=== PATIENT | male | born 1990 | race Caucasian/White ===

== ENCOUNTER 2021-01-15 22:47 | Emergency (ER) | payer MEDICARE, MEDICAID, SELFPAY ==
[2021-01-15 22:55] VITALS: BP 107/59; PULSE 55; RESP 16; TEMP 36.6; O2SAT 97; BMI 20.9
--- NOTE | 2021-01-16 00:33 | PC.NURSE ---
at bedside for primary eval.
--- NOTE | 2021-01-16 00:44 | ED_ITS ---
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 Patient regularly snorts heroin and states that the last use was today. Otherwise, he denies any sore throat, cough, shortness of breath, chest pain/palpitations, GI or symptoms. Related Data Allergies Allergy/AdvReac Type Severity Reaction Status Date / Time No Known Allergies Allergy Verified 01/15/21 23:00 Review of Systems Review of Systems: Pertinent positives and negatives as stated in HPI 10 point review of systems is otherwise negative. [facility] Past Medical History Source: nursing notes reviewed Medical History Asthma Epilepsy Opiate abuse, continuous Thyroid disease Social History Social History Advance Directives: No Advance Directives Information Provided: No Physical Exam Vital Signs: Vital Signs: Last Vital Signs Temp 97.8 F 01/15/21 22:55 Pulse 55 01/15/21 22:55 Resp 16 01/15/21 22:55 BP 107/59 L 01/15/21 22:55 Pulse Ox 97 01/15/21 22:55 Body Mass Index 20.9 VITAL SIGNS: Reviewed. GENERAL: Cachectic appearing, in no acute distress. HEAD: Normocephalic/atraumatic EYES: PERRLA, EOMI NOSE: Nares patent bilateral OROPHARYNX: no oral lesions noted, posterior pharynx clear LUNGS: Normal breath sounds. No adventitious sounds or accessory muscle use. SpO2<97> CARDIOVASCULAR: Regular rate and rhythm without noted murmurs ABDOMEN: Soft, non-tender, non-distended with bowel sounds. BILATERAL FEET: Nonpitting swelling noted to bilateral feet with proximal extension to the ankle without warmth but erythema is noted. SKIN: Inspection of the skin reveals no rashes NEUROLOGIC: Alert and oriented x 4. Strength and sensation to light touch were grossly intact x 4. Course Course Course Narrative: 30-year-old male with history and clinical presentation consistent with bilateral foot swelling and no evidence to suggest infection will evaluate for renal involvement, doubt DVT, possible venous insufficiency. Review of all investigations without acute findings from baseline. All results were discussed via the hydraulic riveter with the mother and patient at bedside. They were encouraged to follow up with the primary care provider for further outpatient management and provided information regarding the clinic here at [facility] for the Suboxone program. MDM - Extremity (Nontraumatic) Lab Data Result diagrams: 01/16/21 01:07 01/16/21 01:08 Labs: Lab Results 01/16/21 01/16/21 01/16/21 Range/Units 01:07 01:07 01:07 WBC 7.3 (4.8-10.8) X10*3/uL RBC 4.12 L (4.60-5.80) X10*6/uL Hgb 12.1 L (14.0-18.0) g/dl Hct 38.4 L (42-52) % MCV 93.2 (80-98) fL MCH 29.4 (27.0-33.0) pg MCHC 31.5 (31.0-36.0) g/dl RDW 12.6 (11.0-16.0) % Plt Count 200 (160-400) X10*3/uL MPV 11.8 (9.4-12.4) fL Immature Gran % (Auto) 0.3 (0.0-0.4) % Neut % (Auto) 48.4 (45-73) % Lymph % (Auto) 34.6 (20-40) % [place] % (Auto) 10.8 (2-11) % Eos % (Auto) 4.8 H (0-4) % Baso % (Auto) 1.1 (0-2) % Lymph # (Auto) 2.5 (1.2-4.9) X10*3/uL [place] # (Auto) 0.8 (0.1-1.2) X10*3/uL Eos # (Auto) 0.4 (0.0-0.4) X10*3/uL Baso # (Auto) 0.1 (0.0-0.2) X10*3/uL Abs Immat Gran (auto) 0.02 (0.00-0.03) X10*3/uL Absolute Neuts (auto) 3.6 (2.0-8.3) X10*3/uL Absolute Nucleated RBC 0.000 (0.0-0.012) X10*3/uL Nucleated RBC % (auto) 0.0 (0.0-0.2) /100WBC Sodium (135-145) mmol/L Potassium (3.3-5.1) mmol/L Chloride (96-108) mmol/L Carbon Dioxide (22-29) mmol/L Anion Gap (12-20) BUN (9-16) mg/dL Creatinine (0.5-1.4) mg/dL Estim Creat Clear Calc Estimated GFR Random Glucose (60-115) mg/dL Lactic Acid 0.9 (0.5-2.0) mmol/L Calcium (8.4-10.2) mg/dL Total Bilirubin (0.0-1.0) mg/dL AST (5-37) U/L ALT (0-40) U/L Alkaline Phosphatase (39-117) U/L Total Protein (6.5-8.0) g/dL Albumin (3.5-5.0) g/dL TSH (0.32-4.0) uIU/mL Free T4 (0.71-1.85) ng/dL COVID-19 (ABRAN) Negative (Negative) COVID-19 Clin Com See Note 01/16/21 Range/Units 01:08 WBC (4.8-10.8) X10*3/uL RBC (4.60-5.80) X10*6/uL Hgb (14.0-18.0) g/dl Hct (42-52) % MCV (80-98) fL MCH (27.0-33.0) pg MCHC (31.0-36.0) g/dl RDW (11.0-16.0) % Plt Count (160-400) X10*3/uL MPV (9.4-12.4) fL Immature Gran % (Auto) (0.0-0.4) % Neut % (Auto) (45-73) % Lymph % (Auto) (20-40) % [place] % (Auto) (2-11) % Eos % (Auto) (0-4) % Baso % (Auto) (0-2) % Lymph # (Auto) (1.2-4.9) X10*3/uL [place] # (Auto) (0.1-1.2) X10*3/uL Eos # (Auto) (0.0-0.4) X10*3/uL Baso # (Auto) (0.0-0.2) X10*3/uL Abs Immat Gran (auto) (0.00-0.03) X10*3/uL Absolute Neuts (auto) (2.0-8.3) X10*3/uL Absolute Nucleated RBC (0.0-0.012) X10*3/uL Nucleated RBC % (auto) (0.0-0.2) /100WBC Sodium 139 (135-145) mmol/L Potassium 4.6 (3.3-5.1) mmol/L Chloride 107 (96-108) mmol/L Carbon Dioxide 18 L (22-29) mmol/L Anion Gap 19 (12-20) BUN 16 (9-16) mg/dL Creatinine 1.09 (0.5-1.4) mg/dL Estim Creat Clear Calc 83.4 Estimated GFR > 60 Random Glucose 92 (60-115) mg/dL Lactic Acid (0.5-2.0) mmol/L Calcium 10.0 (8.4-10.2) mg/dL Total Bilirubin 0.2 (0.0-1.0) mg/dL AST 19 (5-37) U/L ALT 10 (0-40) U/L Alkaline Phosphatase 63 (39-117) U/L Total Protein 8.5 H (6.5-8.0) g/dL Albumin 4.6 (3.5-5.0) g/dL TSH 4.14 H (0.32-4.0) uIU/mL Free T4 0.87 (0.71-1.85) ng/dL COVID-19 (ABRAN) (Negative) COVID-19 Clin Com Discharge Plan Discharge Clinical Impression: Heroin abuse, Bilateral swelling of feet Patient Disposition: Home, Self-Care Instructions: Polysubstance Abuse (ED), Swollen Ankle Joint (ED) Additional Instructions: 1. Greta un seguimiento con quintanilla proveedor de atenci?n primaria el lunes por la ma?almas para pretty reevaluaci?n y un tratamiento ambulatorio adicional. 2. Se le luther proporcionado informaci?n sobre nuestro programa Suboxone aqu? en el hospital para la adicci?n a la hero?na. Regrese a la fam de emergencias por un empeoramiento kole de los s?ntomas. Referrals: Keren Randle MD [Primary Care Provider] - 2 days Print Language: [place] Islander
--- NOTE | 2021-01-16 01:12 | PC.NURSE ---
IV established, BCX x 1 and labs obtained. research technician at bedside for second set of BCX. Pt crying and swearing after labs and Covid. Mom at bedside calming pt down.
[2021-01-16 01:17] LABS: MANUAL DIFF FLAG NO
[2021-01-16 01:18] LABS: Basophils Absolute Auto 0.1 X10*3/uL (0.0-0.2); Basophils Percent Auto 1.1 % (0-2); Eosinophils Absolute Auto 0.4 X10*3/uL (0.0-0.4); Eosinophils Percent Auto 4.8 % (0-4); Hematocrit 38.4 % (42-52); Hemoglobin 12.1 g/dl (14.0-18.0); Imm Gran Abs Auto 0.02 X10*3/uL (0.00-0.03); Imm Gran Pct Auto 0.3 % (0.0-0.4); Lymphocytes Absolute Auto 2.5 X10*3/uL (1.2-4.9); Lymphocytes Percent Auto 34.6 % (20-40); Mean Corpuscular HGB Conc 31.5 g/dl (31.0-36.0); Mean Corpuscular Hemoglobin 29.4 pg (27.0-33.0); Mean Corpuscular Volume 93.2 fL (80-98); Mean Platelet Volume 11.8 fL (9.4-12.4); Monocytes Absolute Auto 0.8 X10*3/uL (0.1-1.2); Monocytes Percent Auto 10.8 % (2-11); Neutrophils Absolute Auto 3.6 X10*3/uL (2.0-8.3); Neutrophils Percent Auto 48.4 % (45-73); Platelet Count 200 X10*3/uL (160-400); Red Blood Count 4.12 X10*6/uL (4.60-5.80); Red Cell Distribution Width 12.6 % (11.0-16.0); White Blood Count 7.3 X10*3/uL (4.8-10.8)
[2021-01-16 01:32] LABS: COVID-19 Test Negative (Negative)
[2021-01-16 01:36] LABS: Lactic Acid 0.9 mmol/L (0.5-2.0)
[2021-01-16 01:56] LABS: Alanine Aminotransferase 10 U/L (0-40); Albumin Level 4.6 g/dL (3.5-5.0); Alkaline Phosphatase 63 U/L (39-117); Anion Gap 19 (12-20); Aspartate Amino Transferase 19 U/L (5-37); Bilirubin Total 0.2 mg/dL (0.0-1.0); Blood Urea Nitrogen 16 mg/dL (9-16); Carbon Dioxide 18 mmol/L (22-29); Chloride 107 mmol/L (96-108); Creatinine Clr Calc Pharmacy 83.4; Estimated Glomerular Filt Rate > 60; Glucose Random 92 mg/dL (60-115); Potassium 4.6 mmol/L (3.3-5.1); Sodium 139 mmol/L (135-145); Total Protein 8.5 g/dL (6.5-8.0)
[2021-01-16 02:04] LABS: TSH reflex Free T4 4.14 uIU/mL (0.32-4.0)
[2021-01-16 02:44] LABS: Free T4 (Free Thyroxine) 0.87 ng/dL (0.71-1.85)
[2021-01-16 03:55] VITALS: BP 132/68; PULSE 48; RESP 20; O2SAT 98
[2021-01-20 05:30] LABS: Levetiracetam Keppra 20.3 mcg/mL (12.0-46.0)
== END 2021-01-16 04:00 | disposition home or self-care (01) ==
PROVIDERS: Emergency Provider Student in an Organized Health Care Education/Training Program; PCP Family Medicine
DX: R22.43 Localized swelling, mass and lump, lower limb, bilateral (principal); M79.672 Pain in left foot; M79.671 Pain in right foot; F11.20 Opioid dependence, uncomplicated; Z20.822 Contact with and (suspected) exposure to COVID-19
CPT/HCPCS: 36415; 80053; 80177; 83605; 84439; 84443; 85025; 87040; 87635; 99283; 99284

== ENCOUNTER 2021-01-19 12:17 | Outpatient (REF) | payer MEDICARE, MEDICAID, SELFPAY ==
--- NOTE | ~2021-01-19 | XR_ITS ---
EXAMINATION: XR FOOT, BILATERAL CLINICAL INDICATION: Hallux valgus. COMPARISON: There are no films to compare. TECHNIQUE: 3 views left foot. 3 views right foot. FINDINGS: LEFT FOOT: 3 views left foot show moderate to marked hallux valgus. There is likely bunion formation associated. There is no bony erosion or osteopenia. The alignment is otherwise felt to be within normal limits in the foot. RIGHT FOOT: 3 views of the right foot show [id number] hallux valgus. Again likely bunion formation. Otherwise alignment is within normal limits. No bony erosion or osteopenia is seen. XR/XR foot LT min 3V IMPRESSION: Hallux valgus left greater than right foot.
--- NOTE | ~2021-01-19 | XR_ITS ---
EXAMINATION: XR FOOT, BILATERAL CLINICAL INDICATION: Hallux valgus. COMPARISON: There are no films to compare. TECHNIQUE: 3 views left foot. 3 views right foot. FINDINGS: LEFT FOOT: 3 views left foot show moderate to marked hallux valgus. There is likely bunion formation associated. There is no bony erosion or osteopenia. The alignment is otherwise felt to be within normal limits in the foot. RIGHT FOOT: 3 views of the right foot show [id number] hallux valgus. Again likely bunion formation. Otherwise alignment is within normal limits. No bony erosion or osteopenia is seen. XR/XR foot RT min 3V IMPRESSION: Hallux valgus left greater than right foot.
== END 2021-01-19 12:18 | disposition home or self-care (01) ==
LOC: HO.XRAY 12:17
PROVIDERS: PCP Family Medicine; Visit Provider Family Medicine
DX: M20.11 Hallux valgus (acquired), right foot (principal); M20.12 Hallux valgus (acquired), left foot; M79.89 Other specified soft tissue disorders
CPT/HCPCS: 73630

== ENCOUNTER 2021-04-29 12:41 | Emergency (ER) | payer MEDICARE, MEDICAID, SELFPAY ==
--- NOTE | 2021-04-29 12:52 | ED_ITS ---
HPI - Seizure General Chief Complaint: Seizure Stated Complaint: SEIZURE Time Seen by Provider: 04/29/21 12:52 Source: patient and EMS Mode of arrival: EMS Limitations: altered mental status (postictal) History of Present Illness MD complaint: seizure Onset (ago): minute(s) Description of Episode: loss of consciousness and tonic-clonic movement Witnessed: Yes - by Bystander Trauma: No Seizure History: Yes Place: Outdoors Possible Precipitating Event: medication Associated symptoms: other (very aggressive afterwards) Treatments prior to arrival: none Related Data Previous Rx's Medication Instructions Recorded divalproex 500 mg tablet,extended 500 mg PO BID #60 tab 04/29/21 release 24 hr (Depakote ER) levetiracetam 1,000 mg tablet 1,000 mg PO BID #60 tab 04/29/21 Allergies Allergy/AdvReac Type Severity Reaction Status Date / Time No Known Allergies Allergy Verified 01/15/21 23:00 Review of Systems Review of Systems: ROS unable to be obtained due to patient being postictal [facility] Past Medical History Attestation statement: The following information was validated with the patient. Medical History Asthma Epilepsy Opiate abuse, continuous Thyroid disease Social History Social History (Updated 04/29/21 @ 13:00 by Vaishnavi Roman DO) Patient Tobacco Use Status: Current everyday Tobacco user Use of substances other than those prescribed or required for medical reasons: No Advance Directives: No Advance Directives Information Provided: No Physical Exam Vital Signs: Vital Signs: Last Vital Signs Temp 98.5 F 04/29/21 13:02 Pulse 67 04/29/21 14:23 Resp 14 04/29/21 14:23 BP 123/62 04/29/21 14:23 Pulse Ox 95 04/29/21 14:23 Body Mass Index 21.6 Appearance: Alert. Oriented X2. No acute distress. Agitated Eyes: Pupils equal, round and reactive to light. ENT: Pharynx normal. no tongue biting Neck: Normal inspection. Neck supple. CVS: Normal heart rate and rhythm. Pulses normal. Respiratory: No respiratory distress. Breath sounds normal. Abdomen: Soft and nontender. Skin: Skin warm and dry. Normal skin color. Normal skin turgor. Extremities: No lower extremity edema. No calf ttp Neuro: Oriented X 2. No motor deficit. No sensory deficit. agitated Course Course Course Narrative: easily woken at baseline GCS 15 unsure if he is compliant with start on keppra 1000mg BID and keppra 500mg BID until he can see his neurologist I spoke to mom and his girlfriend they note the detox program changed his AEDs they are not sure why I told them this was not appropriate without consulting his neurologist - he is to take the medications now that we prescribe they are aware MDM - Seizure MDM Narrative Medical decision making narrative: patient with epilepsy as of january was on depakote 500mg ER in AM and 1,00mg PM as well as keppra 1,000mg AM and 1500mg PM - he states no medications today he is postictal and agitated, labs and IV ativan ordered Lab Data Result diagrams: 04/29/21 13:14 04/29/21 13:14 Labs: Lab Results 04/29/21 04/29/21 04/29/21 Range/Units 13:14 13:14 13:15 WBC 8.1 (4.8-10.8) X10*3/uL RBC 3.94 L (4.60-5.80) X10*6/uL Hgb 11.6 L (14.0-18.0) g/dl Hct 36.3 L (42.0-52.0) % MCV 92.1 (80.0-98.0) fL MCH 29.4 (27.0-33.0) pg MCHC 32.0 (31.0-36.0) g/dl RDW 12.6 (11.0-16.0) % Plt Count 296 (160-400) X10*3/uL MPV 10.7 (9.4-12.4) fL Immature Gran % (Auto) 0.4 (0.0-0.4) % Neut % (Auto) 77.0 H (45-73) % Lymph % (Auto) 13.7 L (20-40) % [place] % (Auto) 6.1 (2-11) % Eos % (Auto) 2.2 (0-4) % Baso % (Auto) 0.6 (0-2) % Lymph # (Auto) 1.1 L (1.2-4.9) X10*3/uL [place] # (Auto) 0.5 (0.1-1.2) X10*3/uL Eos # (Auto) 0.2 (0.0-0.4) X10*3/uL Baso # (Auto) 0.1 (0.0-0.2) X10*3/uL Abs Immat Gran (auto) 0.03 (0.00-0.03) X10*3/uL Absolute Neuts (auto) 6.2 (2.0-8.3) x10*3/uL Absolute Nucleated RBC 0.000 (0.0-0.012) X10*3/uL Nucleated RBC % (auto) 0.0 (0.0-0.2) /100WBC Sodium 138 (135-145) mmol/L Potassium 4.1 (3.3-5.1) mmol/L Chloride 107 (96-108) mmol/L Carbon Dioxide 18 L (22-29) mmol/L Anion Gap 17 (12-20) BUN 17 H (9-16) mg/dL Creatinine 1.13 (0.5-1.4) mg/dL Estim Creat Clear Calc 79.7 Estimated GFR > 60 Random Glucose 134 H D (60-115) mg/dL Calcium 9.4 (8.4-10.2) mg/dL Valproic Acid 6.0 L (50.0-100.0) mcg/mL Discharge Plan Discharge Clinical Impression: Generalized convulsive seizure Patient Disposition: Home, Self-Care Instructions: Epilepsy (ED) Additional Instructions: return to ED for any worsening symptoms or concerns ONLY TAKE THE SEIZURE MEDICATIONS WE PRESCRIBED DO NOT TAKE ANY OTHERS FROM THE DETOX FACILITY RADAMES ?NICAMENTE LOS MEDICAMENTOS ANVERSALES QUE LE PRESCRITAMOS NO RADAMES SHAHZAD?N OTRO DEL CENTRO DE DETOX Prescriptions: New levetiracetam 1,000 mg tablet 1,000 mg PO BID Qty: 60 RF: 2 divalproex [Depakote ER] 500 mg tablet extended release 24 hr 500 mg PO BID Qty: 60 RF: 2 Referrals: Hector Villasenor MD [Physician] - 1 week Stand Alone Forms: Work/School Release Print Language: [place] Verdean
[2021-04-29 13:02] VITALS: BP 136/43; PULSE 85; RESP 18; TEMP 36.9; O2SAT 95; BMI 21.6
[2021-04-29 13:17] VITALS: BP 106/59; PULSE 71; RESP 16; O2SAT 94
[2021-04-29 13:19] LABS: MANUAL DIFF FLAG NO
--- NOTE | 2021-04-29 13:19 | PC.NURSE ---
pt is currently drowsy but arrousable to voice command, no visible incontinence noticed, ns on the monitor, vs stable
[2021-04-29 13:21] LABS: Basophils Absolute Auto 0.1 X10*3/uL (0.0-0.2); Basophils Percent Auto 0.6 % (0-2); Eosinophils Absolute Auto 0.2 X10*3/uL (0.0-0.4); Eosinophils Percent Auto 2.2 % (0-4); Hematocrit 36.3 % (42.0-52.0); Hemoglobin 11.6 g/dl (14.0-18.0); Imm Gran Abs Auto 0.03 X10*3/uL (0.00-0.03); Imm Gran Pct Auto 0.4 % (0.0-0.4); Lymphocytes Absolute Auto 1.1 X10*3/uL (1.2-4.9); Lymphocytes Percent Auto 13.7 % (20-40); Mean Corpuscular Hemoglobin 29.4 pg (27.0-33.0); Mean Corpuscular Volume 92.1 fL (80.0-98.0); Mean Platelet Volume 10.7 fL (9.4-12.4); Monocytes Absolute Auto 0.5 X10*3/uL (0.1-1.2); Monocytes Percent Auto 6.1 % (2-11); Neutrophils Absolute Auto 6.2 x10*3/uL (2.0-8.3); Platelet Count 296 X10*3/uL (160-400); Red Blood Count 3.94 X10*6/uL (4.60-5.80); Red Cell Distribution Width 12.6 % (11.0-16.0); White Blood Count 8.1 X10*3/uL (4.8-10.8)
[2021-04-29] MEDS: LORazepam 2 MG/ML VIAL 1 MG IVPUSH (13:26)
[2021-04-29] MEDS: 0.9 % Sodium Chloride 1,000 ML 999 ML IV (13:26)
[2021-04-29] MEDS: levETIRAcetam in NaCl (iso-os) 1,000 MG/100 ML PIGGYBACK 400 MG IV (13:27)
[2021-04-29 13:34] LABS: Anion Gap 17 (12-20); Blood Urea Nitrogen 17 mg/dL (9-16); Calcium 9.4 mg/dL (8.4-10.2); Carbon Dioxide 18 mmol/L (22-29); Chloride 107 mmol/L (96-108); Creatinine Clr Calc Pharmacy 79.7; Estimated Glomerular Filt Rate > 60; Glucose Random 134 mg/dL (60-115); Potassium 4.1 mmol/L (3.3-5.1); Sodium 138 mmol/L (135-145)
[2021-04-29 14:23] VITALS: BP 123/62; PULSE 67; RESP 14; O2SAT 95
--- NOTE | 2021-04-29 16:02 | PC.NURSE ---
no seizure activity noticed while in the ed
[2021-04-29] MEDS: Divalproex Sodium ER 500 MG TAB.ER.24H PO (16:07)
[2021-04-29 16:12] VITALS: BP 117/62; PULSE 61; RESP 8; TEMP 36.9; O2SAT 97
== END 2021-04-29 17:13 | disposition home or self-care (01) ==
PROVIDERS: Emergency Provider Emergency Medicine; PCP Family Medicine
DX: G40.409 Other generalized epilepsy and epileptic syndromes, not intractable, without status epilepticus (principal); F11.20 Opioid dependence, uncomplicated; F17.200 Nicotine dependence, unspecified, uncomplicated
CPT/HCPCS: 36415; 80048; 80164; 85025; 96361; 96374; 96375; 99284; J1953; J2060

== ENCOUNTER 2022-09-29 17:02 | Emergency (ER) | payer MEDICARE, MEDICAID, SELFPAY ==
[2022-09-29] MEDS: LORazepam 2 MG/ML VIAL IM (17:10)
[2022-09-29] MEDS: diphenhydrAMINE HCL 50 MG/ML VIAL IM (17:10)
--- NOTE | 2022-09-29 17:13 | ED_ITS ---
HPI - General Adult General Chief complaint: Overdose Stated complaint: ?OD Time Seen by Provider: 09/29/22 17:07 Source: EMS Mode of arrival: EMS Limitations: altered mental status History of Present Illness HPI narrative: 32-year-old male with reported history of drug abuse presents with erratic behavior. Symptoms started prior to arrival. He is coming from home. Father apparently tried to give Narcan with no improvement in symptoms. He was alert and very active. He was noted to be quite agitated. He was talking in Nepalese unclear what he was saying. Patient is unable to provide history. Patient's b ehavior became so retic, he was referred as per, receive Haldol 5 mg IM. Reportedly he is moving all extremities, there is no evidence of trauma. Review of the record, patient apparently has a history of seizure disorder. Related Data Previous Rx's Medication Instructions Recorded divalproex 500 mg tablet,extended 500 mg PO BID #60 tabs 04/29/21 release 24 hr (Depakote ER) levetiracetam 1,000 mg tablet 1,000 mg PO BID #60 tabs 04/29/21 Allergies Allergy/AdvReac Type Severity Reaction Status Date / Time No Known Allergies Allergy Verified 09/29/22 17:18 [facility] Past Medical History Medical History Asthma Epilepsy Opiate abuse, continuous Thyroid disease Social History Social History Patient Tobacco Use Status: Current everyday Tobacco user Advance Directives: No Physical Exam ED Vital Signs: Vital Signs - 24 hr 09/29/22 17:14 09/29/22 17:21 09/29/22 19:23 Temperature Pulse Rate 104 H 104 H 67 Respiratory Rate 18 26 H 16 Blood Pressure 110/56 L 133/56 L 101/60 Pulse Oximetry 100 98 94 Oxygen Delivery Method Room Air Room Air Room Air 09/29/22 22:12 09/30/22 00:00 Temperature 97.1 F Pulse Rate 56 Respiratory Rate 13 18 Blood Pressure 148/79 H Pulse Oximetry 96 Oxygen Delivery Method Room Air BMI result Body Mass Index 19.9 GEN: Well developed, AMS, erratic behavior, not redirectable, diaphoretic HEENT: Normocephalic, atraumatic, normal external ears, nose appears normal, Eyes: Normal to appearance Neck: Supple, no lymphadenopathy Respiratory: no respiratory distress, clear to auscultation bilaterally Cardiovascular: Regular rate and rhythm Abdomen: Soft, nontender, nondistended, no guarding, no rebound Extremities: No clubbing cyanosis or edema Neurologic: No focal neurologic deficits, cranial nerves 2-12 intact, strength is 5/5 bilaterally Course Course Course Narrative: 32-year-old male presents with altered mental status, agitation, aggressive behavior, not redirectable. Patient received Haldol prior to arrival, brought in on 4 point restraints. Patient continues to be not redirectable at this time. I have given an additional dose of medications Ativan 2 mg IM and Benadryl 50 mg IM. Will need to reassess patient. I suspect his polysubstance abuse. Reevaluation(s) Reevaluation #1: patient with elevated depakote level, doubt cause of symptoms. Continue to support clinically Time: 19:11 Reevaluation #2: Mother is bedside Time: 21:14 Reevaluation #3: patient out of restraints, arousable, no longer agitated or tremulous. Time: 01:20 Additional Reevaluation(s): Attempted multiple times to talk with patient, not answering questions, falls asleep easily. No tox screen at this time. Dr. Mccarthy to assume care pending reevaluation. Medications Administered Discontinued Medications Generic Name Dose Route Start Last Admin Trade Name Freq PRN Reason Stop Dose Admin Diphenhydramine HCl 50 mg 09/29/22 17:07 09/29/22 17:10 Diphenhydramine Hcl 50 Mg/Ml Vial IM 09/29/22 17:08 50 mg ONCE ONE Administration Lorazepam 2 mg 09/29/22 17:07 09/29/22 17:10 Lorazepam 2 Mg/Ml Vial IM 09/29/22 17:08 2 mg ONCE ONE Administration Medical Decision Making Medical Decision Making [facility] Narrative: 32-year-old male with history of seizure disorder, substance abuse presents with agitation, aggressive behavior, not redirectable. Patient required restraints upon arrival in order to fully assess the patient as well as to augment the therapeutic milieu. Differential diagnosis includes Depakote toxicity, substance abuse, psychiatric disorder Differential Diagnosis Differential Diagnoses: The differential diagnosis associated with the presenta tion includes (See above) Admission/Observation Consideration of admission/observation: Escalation of care including admission/observation considered Lab Data MDM Lab Attestation statement: I reviewed the patient's lab results. 09/29/22 17:25 09/29/22 17:25 Labs: Lab Results 09/29/22 09/29/22 09/29/22 Range/Units 17:25 17:25 17:25 WBC 8.3 (4.8-10.8) X10*3/uL RBC 4.15 L (4.60-5.80) X10*6/uL Hgb 12.0 L (14.0-18.0) g/dl Hct 38.5 L (42.0-52.0) % MCV 92.8 (80.0-98.0) fL MCH 28.9 (27.0-33.0) pg MCHC 31.2 (31.0-36.0) g/dl RDW 13.7 (11.0-16.0) % Plt Count 251 (160-400) X10*3/uL MPV 11.5 (9.4-12.4) fL Immature Gran % (Auto) 0.4 (0.0-0.4) % Neut % (Auto) 62.2 (45-73) % Lymph % (Auto) 25.8 (20-40) % [place] % (Auto) 9.3 (2-11) % Eos % (Auto) 1.6 (0-4) % Baso % (Auto) 0.7 (0-2) % Lymph # (Auto) 2.1 (1.2-4.9) X10*3/uL [place] # (Auto) 0.8 (0.1-1.2) X10*3/uL Eos # (Auto) 0.1 (0.0-0.4) X10*3/uL Baso # (Auto) 0.1 (0.0-0.2) X10*3/uL Abs Immat Gran (auto) 0.03 (0.00-0.03) X10*3/uL Absolute Neuts (auto) 5.2 (2.0-8.3) x10*3/uL Absolute Nucleated RBC 0.000 (0.0-0.012) X10*3/uL Nucleated RBC % (auto) 0.0 (0.0-0.2) /100WBC Sodium 141 (135-145) mmol/L Potassium 4.9 (3.3-5.1) mmol/L Chloride 104 (96-108) mmol/L Carbon Dioxide 24 (22-29) mmol/L Anion Gap 18 (12-20) BUN 19 H (9-16) mg/dL Creatinine 0.91 (0.5-1.4) mg/dL Estim Creat Clear Calc 93.3 Estimated GFR > 60 Random Glucose 80 (60-115) mg/dL Calcium 9.8 (8.4-10.2) mg/dL Total Bilirubin 0.3 (0.0-1.0) mg/dL AST 25 (5-37) U/L ALT 21 (0-40) U/L Alkaline Phosphatase 58 (39-117) U/L Total Protein 8.0 (6.5-8.0) g/dL Albumin 4.4 (3.5-5.0) g/dL Valproic Acid 116.6 H* (50.0-100.0) mcg/mL Ethyl Alcohol < 10 mg/dL Independent Historian Clinical information obtained from an independent historian. History obtained from or confirmed by: EMS Prescription Management I considered prescription management with: Other (anxiolytics) Chronic Conditions Patient?s care impacted by: Other (seizure disorder) Discharge Plan Discharge Clinical Impression: Altered mental status Patient Disposition: Still a Patient Instructions: Altered Mental Status (ED) Prescriptions: No Action levetiracetam 1,000 mg tablet 1,000 mg PO BID Qty: 60 2RF divalproex [Depakote ER] 500 mg tablet extended release 24 hr 500 mg PO BID Qty: 60 2RF Referrals: Keren Randle MD [Primary Care Provider] - 2 days Print Language: Nepalese
[2022-09-29 17:14] VITALS: BP 110/56; BP 164/90; PULSE 104; PULSE 111; RESP 18; O2SAT 100; BMI 19.9
[2022-09-29 17:21] VITALS: BP 133/56; PULSE 104; RESP 26; O2SAT 98
[2022-09-29 17:29] LABS: MANUAL DIFF FLAG NO
[2022-09-29 17:30] LABS: Basophils Absolute Auto 0.1 X10*3/uL (0.0-0.2); Basophils Percent Auto 0.7 % (0-2); Eosinophils Absolute Auto 0.1 X10*3/uL (0.0-0.4); Eosinophils Percent Auto 1.6 % (0-4); Hematocrit 38.5 % (42.0-52.0); Imm Gran Abs Auto 0.03 X10*3/uL (0.00-0.03); Imm Gran Pct Auto 0.4 % (0.0-0.4); Lymphocytes Absolute Auto 2.1 X10*3/uL (1.2-4.9); Lymphocytes Percent Auto 25.8 % (20-40); Mean Corpuscular HGB Conc 31.2 g/dl (31.0-36.0); Mean Corpuscular Hemoglobin 28.9 pg (27.0-33.0); Mean Corpuscular Volume 92.8 fL (80.0-98.0); Mean Platelet Volume 11.5 fL (9.4-12.4); Monocytes Absolute Auto 0.8 X10*3/uL (0.1-1.2); Monocytes Percent Auto 9.3 % (2-11); Neutrophils Absolute Auto 5.2 x10*3/uL (2.0-8.3); Neutrophils Percent Auto 62.2 % (45-73); Platelet Count 251 X10*3/uL (160-400); Red Blood Count 4.15 X10*6/uL (4.60-5.80); Red Cell Distribution Width 13.7 % (11.0-16.0); White Blood Count 8.3 X10*3/uL (4.8-10.8)
--- NOTE | 2022-09-29 17:52 | PC.NURSE ---
Pt remains aggitated, and restless, pt pulling off leads, and O2 monitor, multiple attempts to replace, changed over with security. BP not able to obtain as patient continues to trash around, PRN medications have not had any effect as of yet.
[2022-09-29 17:56] LABS: Alanine Aminotransferase 21 U/L (0-40); Albumin Level 4.4 g/dL (3.5-5.0); Alkaline Phosphatase 58 U/L (39-117); Anion Gap 18 (12-20); Aspartate Amino Transferase 25 U/L (5-37); Bilirubin Total 0.3 mg/dL (0.0-1.0); Blood Urea Nitrogen 19 mg/dL (9-16); Calcium 9.8 mg/dL (8.4-10.2); Carbon Dioxide 24 mmol/L (22-29); Chloride 104 mmol/L (96-108); Creatinine Clr Calc Pharmacy 93.3; Estimated Glomerular Filt Rate > 60; Ethanol < 10 mg/dL; Glucose Random 80 mg/dL (60-115); Potassium 4.9 mmol/L (3.3-5.1); Sodium 141 mmol/L (135-145)
[2022-09-29 18:16] LABS: Valproate 116.6 mcg/mL (50.0-100.0)
--- NOTE | 2022-09-29 18:37 | PC.NURSE ---
Pt remains thrashing in bed, not speaking full sentences, he just peed a large amount of urine all over the room floor, pt refusing to keep cardiac/bp/o2 monitor on.
[2022-09-29 19:23] VITALS: BP 101/60; PULSE 67; RESP 16; O2SAT 94
--- NOTE | 2022-09-29 20:56 | PC.NURSE ---
This automobile and property underwriter assumed care of this Pt at 1900. Pt appears to be sleeping at this time. Perry provider, JAMINS. Mother at bedside. Will CTM.
--- NOTE | 2022-09-29 21:02 | MHC.RECOVSUP ---
? Reason for consult:LAUREN o? Current location:ED17? o? Identified substance use concern:? -? Overdose ? Intervention: o? Community resources provided ? Plan: o? Follow up tomorrow? ?? Additional information:ROMAIN wasn't able to connect with this pt because this pt is too intoxicated/ behavior is irratic. ROMAIN provided this pt mother with recovery resources. Please follow up tomorrow.
[2022-09-29 22:12] VITALS: BP 148/79; PULSE 56; RESP 13; TEMP 36.2; O2SAT 96
[2022-09-30] VITALS (7 sets, daily range): BP systolic 137–148; BP diastolic 61–83; PULSE 54–63; RESP 16–20; TEMP 36.7–37.3; O2SAT 94–97
--- NOTE | 2022-09-30 06:15 | PC.NURSE ---
Addendum entered by Dariela Cruz 09/30/22 06:17: Unable to collect urine sample, Pt nods no when asked if he has to use the BR. Original Note: Pt responsive to tactile stimuli, then falls back to sleep, RR 18, O2 sat 95% on RA.
--- NOTE | 2022-09-30 08:37 | PC.NURSE ---
pt sleeping in NAD. resp effort adequate. awaiting dispo
--- NOTE | 2022-09-30 12:57 | PC.NURSE ---
Sierra RN from addiction services & staff medical data entry clerk at bedside speaking with patient. Pt is sleepy.
--- NOTE | 2022-09-30 13:22 | HO.SUDE ---
Met with pt in ED17, along with network development coordinator, after suspected overdose. Pt did not receive Narcan in ED, was not lethargic, actually presented with erratic behavior. Per documentation, pt received Narcan prior to presenting to hospital with no effect. Currently, pt asleep, wakes to touch, difficulty staying awake during conversation. Pt does report being on Suboxone x 6-7 months through [facility] and has been doing well with abstinence. Pt reports yesterday he used what he thought was heroin, 1 bag, which resulted in ED visit. Pt denies hx overdoses. UDS is uncollected. Pt declines ATS and/or recovery support at this time. Pt encouraged to follow up with [facility]. Discussed with pts RN.
--- NOTE | 2022-09-30 13:53 | PC.NURSE ---
Per Sierra BLACKMON, plan is to discharge the patient home later today. Pt refused detox & other services. States that he takes Suboxone, and that he used what I thought was Heroin last night and then had a weird reaction to it. Denies SI/HI. Sleepy, but calm/cooperative. Pt to be allowed to sleep for a bit, and then will be discharged home. Sierra BLACKMON notified provider regarding recommended plan for discharge home.
--- NOTE | 2022-09-30 16:06 | MHC.RECOVSUP ---
? Reason for consult Recovery support o Current location: ED17 o Identified substance use concern: Heroin - Overdose - Support ? Intervention: o Community resources provided o Harm reduction discussion ? Plan: o Patient to follow up with H after discharge ? Additional information: Patient did not want any services... But was able to talk harm reduction and advised patient where to seek help if he changes his mind..
--- NOTE | 2022-09-30 16:45 | PC.NURSE ---
Recovery team assisting Isidoro with finding a ride home.
== END 2022-09-30 17:01 | disposition home or self-care (01) ==
PROVIDERS: Emergency Provider Emergency Medicine; PCP Family Medicine
DX: R41.82 Altered mental status, unspecified (principal); R45.1 Restlessness and agitation; F11.20 Opioid dependence, uncomplicated; F17.200 Nicotine dependence, unspecified, uncomplicated; Z79.899 Other long term (current) drug therapy
CPT/HCPCS: 36415; 80053; 80164; 82077; 85025; 96372; 99285; J1200; J2060

== ENCOUNTER 2023-01-13 21:17 | Emergency (ER) | payer MEDICARE, MEDICAID, SELFPAY ==
[2023-01-13 21:26] VITALS: BP 127/88; PULSE 62; RESP 20; TEMP 36.2; O2SAT 96; BMI 17.9
--- NOTE | 2023-01-13 21:26 | PC.NURSE ---
this rn assumed care of pt. security at bedside. belongings secured in decon. pt placed on monitor dr yousif to bedside
[2023-01-13 21:46] VITALS: BP 136/78; PULSE 90; RESP 18; O2SAT 97
--- NOTE | 2023-01-13 22:21 | ED.OVERDOSE ---
HPI - Overdose General Chief Complaint: Overdose Stated Complaint: OVERDOSE 4MG NARCAN COMBATIVE Time Seen by Provider: 01/13/23 21:39 Source: EMS Mode of arrival: EMS Limitations: altered mental status History of Present Illness HPI Narrative: Patient comes to the emergency room by ambulance from a local liquor store. Patient was found unresponsive an overdose by a bystander and, patient received 4 mg of intranasal Narcan. Patient woke up after the 4 mg of Narcan. Patient arrived to the emergency room swinging at staff, screaming, yelling. Related Data Previous Rx's Medication Instructions Recorded divalproex 500 mg tablet,extended 500 mg PO BID #60 tabs 04/29/21 release 24 hr (Depakote ER) levetiracetam 1,000 mg tablet 1,000 mg PO BID #60 tabs 04/29/21 Allergies Allergy/AdvReac Type Severity Reaction Status Date / Time No Known Allergies Allergy Verified 09/29/22 17:18 Review of Systems Review of Systems: Yes Unobtainable due to mental status PMFSH Past Medical History Medical History Asthma Epilepsy Opiate abuse, continuous Thyroid disease Social History Social History Patient Tobacco Use Status: Current everyday Tobacco user Advance Directives: No Advance Directives Information Provided: No Physical Exam Vital Signs: Vital Signs: Last Vital Signs Temp 97.2 F 01/13/23 21:26 Pulse 90 01/13/23 21:46 Resp 18 01/13/23 21:46 BP 136/78 01/13/23 21:46 Pulse Ox 97 01/13/23 21:46 O2 Del Method Room Air 01/13/23 21:46 BMI result Body Mass Index 17.9 Const: Other: Appearance: Alert. Combative Eyes: Pupils equal, round and reactive to light. ENT: Pharynx normal. Neck: Normal inspection. Neck supple. No lymph nodes noted. No crepitus CVS: Normal heart rate and rhythm. Pulses normal. Normal S1 and S2 Respiratory: No respiratory distress. Breath sounds normal. No Wheezing. No rales Abdomen: Soft and nontender. No rigidity. No distention. Skin: Skin warm and dry. Normal skin color. Normal skin turgor. Extremities: No lower extremity edema. No Lacerations. No Rash Neuro: Moving all extremities. No slurred speech. CN 2 through 12 grossly intact Psych: Combative Course Course Course Narrative: -patient's vital stable, blood pressure 136/78, heart rate 90, respirations 18, temperature 97.2 degrees, oxygen saturation 97% on room air -patient sleeping comfortably with hard and O2 monitor -when patient is more awake/sober, we will assess for SI/HI and offer a care team/Sude evaluation -physician observation started at 22:25 -when patient is discharged, he will be discharged with home Narcan Medical Decision Making Medical Decision Making MDM Narrative: -22:34, patient oxygen desaturated to low 70s, patient was given 4 mg of intranasal Narcan, patient responded well, woke up immediately, combative, nasal cannula was applied, patient back to sleep, oxygen saturation 98% on 1 L nasal cannula Differential Diagnosis Differential Diagnoses: The differential diagnosis associated with the presentation includes (Substance overdose, alcohol intoxication) Admission/Observation Consideration of admission/observation: Escalation of care including admission/observation considered (Patient will remain under observation until he is clinically sober and awake) Critical Care Time Critical Care Time Critical Care Time: Yes Total Critical Care Time: 75 Attestation: I have personally provided critical care time. Time includes review of lab data, radiology results, discussion with consultants, and monitoring for potential decompensation. Intervention performed as documented. Discharge Plan Discharge Clinical Impression: Drug overdose Patient Disposition: Still a Patient Prescriptions: No Action levetiracetam 1,000 mg tablet 1,000 mg PO BID Qty: 60 2RF divalproex [Depakote ER] 500 mg tablet extended release 24 hr 500 mg PO BID Qty: 60 2RF
--- NOTE | 2023-01-13 22:33 | MHC.EDTECH ---
patient changed over and leads applied
[2023-01-13 22:34] VITALS: PULSE 62; RESP 19; O2SAT 96
[2023-01-13 22:50] VITALS: BP 156/68; PULSE 52; RESP 19; TEMP 36.6; O2SAT 98
[2023-01-13] MEDS: Naloxone HCl Nasal 4 MG SPRAY NOSTRILALT (22:54)
--- NOTE | 2023-01-13 23:00 | PC.NURSE ---
dr yousif made aware of bradycardia. pt HR 40-60 while sleeping. no new orders from
[2023-01-14 01:10] VITALS: BP 126/65; PULSE 55; RESP 21; TEMP 36.3; O2SAT 98
[2023-01-14 03:50] VITALS: BP 110/68; PULSE 50; RESP 16; TEMP 36.6; O2SAT 100
--- NOTE | 2023-01-14 03:51 | MHC.EDTECH ---
This tech assumed care of patient at 0300AM, Hourly rounds completed and vitals were taken.
[2023-01-14 05:44] VITALS: BP 143/71; PULSE 45; RESP 16; O2SAT 99
--- NOTE | 2023-01-14 06:17 | PC.NURSE ---
pt thrashing around on stretcher. continued to remove monitors. seizure pad placed on siderails to prevent injury due to pt due to sporatic movements
[2023-01-14 07:38] VITALS: BP 135/67; PULSE 42; RESP 12; O2SAT 99
--- NOTE | 2023-01-14 07:40 | PC.NURSE ---
pt currently sleeping, vss aside from bradycardic. sinus wang on the cardiac rn. per shift leader nurse, pt stays in low wang's while asleep. tried to wake pt up but he is refusing to sit up/still asleep. call ramachandran placed within reach. will continue to monitor.
[2023-01-14] MEDS: Naloxone HCl Nasal TAKE HOME 4 MG SPRAY 8 MG NOSTRILALT (09:13)
== END 2023-01-14 09:21 | disposition home or self-care (01) ==
PROVIDERS: Emergency Provider Emergency Medicine Emergency Medical Services
DX: T65.91XA Toxic effect of unspecified substance, accidental (unintentional), initial encounter (principal); Y92.9 Unspecified place or not applicable; R41.82 Altered mental status, unspecified
CPT/HCPCS: 99283; 99285

== ENCOUNTER 2023-04-25 12:39 | Emergency (ER) | payer OTHER, SELFPAY ==
[2023-04-25 12:49] VITALS: BP 120/78; PULSE 120; PULSE 88; RESP 18; TEMP 37.1; O2SAT 95; O2SAT 97; BMI 21.6
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
[2023-04-25 14:06] VITALS: BP 120/65; PULSE 67; RESP 14; O2SAT 96
[2023-04-25 14:35] LABS: MANUAL DIFF FLAG NO
[2023-04-25 14:37] LABS: Basophils Absolute Auto 0.1 X10*3/uL (0.0-0.2); Basophils Percent Auto 1.2 % (0-2); Eosinophils Absolute Auto 0.5 X10*3/uL (0.0-0.4); Eosinophils Percent Auto 3.9 % (0-4); Hematocrit 37.5 % (42.0-52.0); Hemoglobin 11.9 g/dl (14.0-18.0); Imm Gran Abs Auto 0.04 X10*3/uL (0.00-0.03); Imm Gran Pct Auto 0.3 % (0.0-0.4); Lymphocytes Absolute Auto 1.6 X10*3/uL (1.2-4.9); Lymphocytes Percent Auto 13.6 % (20-40); Mean Corpuscular HGB Conc 31.7 g/dl (31.0-36.0); Mean Corpuscular Volume 91.5 fL (80.0-98.0); Mean Platelet Volume 11.5 fL (9.4-12.4); Monocytes Absolute Auto 1.3 X10*3/uL (0.1-1.2); Monocytes Percent Auto 11.3 % (2-11); Neutrophils Absolute Auto 8.1 x10*3/uL (2.0-8.3); Neutrophils Percent Auto 69.7 % (45-73); Platelet Count 216 X10*3/uL (160-400); Red Cell Distribution Width 12.6 % (11.0-16.0); White Blood Count 11.7 X10*3/uL (4.8-10.8)
[2023-04-25 14:50] LABS: Lactic Acid 1.4 mmol/L (0.5-2.0)
[2023-04-25 14:52] LABS: Valproate 24.5 mcg/mL (50.0-100.0)
[2023-04-25 14:54] LABS: Alanine Aminotransferase 12 U/L (0-40); Albumin Level 4.1 g/dL (3.5-5.0); Alkaline Phosphatase 56 U/L (39-117); Anion Gap 11 (12-20); Aspartate Amino Transferase 20 U/L (5-37); Bilirubin Total 0.2 mg/dL (0.0-1.0); Blood Urea Nitrogen 16 mg/dL (9-16); Calcium 9.8 mg/dL (8.4-10.2); Carbon Dioxide 27 mmol/L (22-29); Chloride 105 mmol/L (96-108); Creatinine Clr Calc Pharmacy 110.5; Estimated Glomerular Filt Rate > 60; Glucose Random 99 mg/dL (60-115); Potassium 4.5 mmol/L (3.3-5.1); Sodium 138 mmol/L (135-145); Total Protein 7.9 g/dL (6.5-8.0)
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
--- NOTE | 2023-04-25 15:22 | ECG_ITS ---
Test Reason : DIZZINESS Blood Pressure : / mmHG Vent. Rate : 057 BPM Atrial Rate : 057 BPM P-R Int : 148 ms QRS Dur : 086 ms QT Int : 416 ms P-R-T Axes : 031 051 041 degrees QTc Int : 404 ms Sinus bradycardia with sinus arrhythmia RSR' or QR pattern in V1 suggests right ventricular conduction delay Abnormal ECG When compared with ECG of 13-MAY-2017 10:51, Vent. rate has decreased BY 45 BPM Nonspecific T wave abnormality no longer evident in Lateral leads Referred By: Roshan Andino Electronically Signed By:LANDEN TY MD
[2023-04-25 15:44] LABS: Ethanol < 10 mg/dL
[2023-04-25] MEDS: Valproic Acid (as Sodium Salt) 500 MG in Dextrose 5 % 50 ML 55 MG IV (16:01)
[2023-04-25 17:29] VITALS: BP 122/68; PULSE 55; RESP 11; O2SAT 97
[2023-04-25] MEDS: 0.9 % Sodium Chloride 1,000 ML 999 ML IV (17:32)
[2023-04-25] MEDS: levETIRAcetam in NaCl (iso-os) 1,000 MG/100 ML PIGGYBACK 400 MG IV (18:22)
[2023-04-25 18:28] LABS: Appearance Urine Clear; Color Urine Yellow; Glucose Urine UA Negative (Negative); Leukocyte Esterase Urine Negative (Negative); Nitrite Urine Negative (Negative); PH 8.5 (5.0-9.0); Specific Gravity - Urine 1.015 (1.005-1.025); Urine Blood Negative (Negative); Urine Ketones Negative (Negative); Urine Protein Negative (Neg-Trace)
[2023-04-25 18:37] LABS: Amphetamine Screen Urine Not Detected (Not Detect); Barbiturates, Urine Not Detected (Not Detect); Benzodiazepines Screen Urine Not Detected (Not Detect); Cannabinoid Screen Urine Not Detected (Not Detect); Cocaine Screen Urine POSITIVE (Not Detect); Fentanyl, urine POSITIVE (Not Detect); Opiate Screen Urine POSITIVE (Not Detect); Phencyclidine Screen Urine Not Detected (Not Detect)
[2023-04-25 19:36] VITALS: BP 124/75; PULSE 76; RESP 17; TEMP 37.1; O2SAT 94
[2023-04-25 20:52] VITALS: BP 126/80; PULSE 80; RESP 18; O2SAT 97
[2023-04-25] MEDS: Divalproex Sodium ER 500 MG TAB.ER.24H PO (20:56)
[2023-04-29 00:08] LABS: Levetiracetam Keppra 26.3 mcg/mL (6.0-46.0)
== END 2023-04-25 21:08 | disposition home or self-care (01) ==
PROVIDERS: Emergency Provider Emergency Medicine
DX: G40.909 Epilepsy, unspecified, not intractable, without status epilepticus (principal); S80.212A Abrasion, left knee, initial encounter; S80.211A Abrasion, right knee, initial encounter; X58.XXXA Exposure to other specified factors, initial encounter; Y93.9 Activity, unspecified; Y92.9 Unspecified place or not applicable; Y99.9 Unspecified external cause status; Z79.899 Other long term (current) drug therapy
CPT/HCPCS: 36415; 80053; 80164; 80177; 80307; 81003; 83605; 85025; 93005; 96361; 96365; 96366; 96375; 99284; 99285; J1953

== ENCOUNTER 2024-03-18 11:04 | Outpatient (REF) | payer OTHER, SELFPAY ==
[2024-03-18 13:31] LABS: MANUAL DIFF FLAG NO
[2024-03-18 13:34] LABS: Basophils Absolute Auto 0.1 X10*3/uL (0.0-0.2); Basophils Percent Auto 1.9 % (0-2); Eosinophils Absolute Auto 0.5 X10*3/uL (0.0-0.4); Hematocrit 40.7 % (42.0-52.0); Hemoglobin 12.6 g/dl (14.0-18.0); Imm Gran Abs Auto 0.01 X10*3/uL (0.00-0.03); Imm Gran Pct Auto 0.2 % (0.0-0.4); Lymphocytes Percent Auto 47.9 % (20-40); Mean Corpuscular Hemoglobin 27.9 pg (27.0-33.0); Mean Corpuscular Volume 90.2 fL (80.0-98.0); Mean Platelet Volume 11.9 fL (9.4-12.4); Monocytes Absolute Auto 0.5 X10*3/uL (0.1-1.2); Neutrophils Absolute Auto 2.1 x10*3/uL (2.0-8.3); Platelet Count 242 X10*3/uL (160-400); Red Blood Count 4.51 X10*6/uL (4.60-5.80); Red Cell Distribution Width 13.8 % (11.0-16.0); White Blood Count 6.3 X10*3/uL (4.8-10.8)
[2024-03-18 14:11] LABS: Alanine Aminotransferase 24 U/L (0-40); Albumin Level 4.4 g/dL (3.5-5.0); Alkaline Phosphatase 61 U/L (39-117); Anion Gap 12 (12-20); Aspartate Amino Transferase 20 U/L (5-37); Bilirubin Direct < 0.2 mg/dL (0.0-0.5); Bilirubin Total 0.2 mg/dL (0.0-1.0); Blood Urea Nitrogen 24 mg/dL (9-16); Calcium 9.7 mg/dL (8.4-10.2); Carbon Dioxide 27 mmol/L (22-29); Chloride 108 mmol/L (96-108); Estimated Glomerular Filt Rate > 60; Glucose Random 83 mg/dL (60-115); Potassium 4.5 mmol/L (3.3-5.1); Sodium 142 mmol/L (135-145); Total Protein 8.1 g/dL (6.5-8.0)
[2024-03-18 14:24] LABS: Cholesterol 135 mg/dL (<200); HDL Cholesterol 33 mg/dL (>40); LDL Cholesterol Calculated 57 mg/dL (<100); TSH reflex Free T4 3.27 uIU/mL (0.32-4.0); Triglycerides 228 mg/dL (<150)
[2024-03-18 14:36] LABS: Reflex LDLD? No
[2024-03-19 08:31] LABS: HIV AB/AG Nonreactive (Nonreactive); HIV Num 1 0.05 S/CO (0.00-0.99); ~HepC Num1 0.19 S/CO (0.00-0.79); ~Hepatitis C Antibody Nonreactive (Nonreactive)
[2024-03-19 08:43] LABS: Syphilis Screen Nonreactive (Nonreactive)
[2024-03-21 04:33] LABS: TS Negative Control Passed; TS Panel A 0; TS Panel B 0; TS Positive Control Passed; TSpotTB Negative (Negative)
== END 2024-03-18 11:05 | disposition home or self-care (01) ==
LOC: HO.HHCL 11:04
PROVIDERS: Family Medicine; Visit Provider Emergency Medicine
DX: E03.9 Hypothyroidism, unspecified (principal); G40.909 Epilepsy, unspecified, not intractable, without status epilepticus; F11.20 Opioid dependence, uncomplicated
CPT/HCPCS: 36415; 80053; 80061; 80076; 82248; 84443; 85025; 86481; 86780; 86803; 87389

== ENCOUNTER 2024-04-28 11:03 | Outpatient (REF) | payer OTHER, SELFPAY ==
[2024-04-28 12:20] LABS: Valproate 102.6 mcg/mL (50.0-100.0)
== END 2024-04-28 11:04 | disposition home or self-care (01) ==
LOC: HO.LAB 11:03
PROVIDERS: PCP Family Medicine; Visit Provider Registered Nurse
DX: G40.909 Epilepsy, unspecified, not intractable, without status epilepticus (principal)
CPT/HCPCS: 36415; 80164

== ENCOUNTER 2024-10-29 10:27 | Outpatient (REF) | payer OTHER, SELFPAY ==
--- OUTSIDE RECORDS SUMMARY | 2024-10-29 11:26 | XMS_ITS | Encounter Summary ---
Author Organization [email or web address] Address [address] [place] [address] Care Team Providers Care Licensed Practical Nurse Clinic Nurse Name Role Phone Keren Randle MD Primary Care Provider [phone] Encounter Details Date Type Department Care Team (Late st Contact Info) Description 08/28/2022 Orders Only [facility] [address] [place] [address] [phone] Martínez Roy MD [address], [place] [phone] Opioid type dependence, continuous (CMS/HCC) (Primary Dx) Social History Tobacco Use Types Packs/Day Years Used Date Smoking Tobacco: Every Day Cigarettes Smokeless Tobacco: Never Alcohol Use Standard Drinks/Week Comments Not Currently 0 (1 standard drink = 0.6 oz pur e alcohol) Depression Answer Date Recorded Patient Health Questionnaire-9 Score 0 08/21/2022 Depression Answer Date Recorded Patient Health Questionnaire-2 Score 0 08/21/2022 Sex and Gender Information Value Date Recorded Sex Assigned at Male 04/03/2022 10:22 AM EDT Legal Sex Male 10:22 AM EDT Gender Identity Male 04/03/2022 10:22 AM EDT Sexual Orientation Choose not to disclose 2021 10:22 AM EDT COVID-19 Exposure Response Date Recorded In the last 10 days, have yo u been in contact with someone who was confirmed or suspected to have Coronavirus/COVID-19? No / Unsure 08/31/2022 10:40 AM EDT documented as of this encounter Plan of Treatment Upcoming Encounters Date Type Department Care Team (Late st Contact Info) Description 11/04/2024 10:00 AM EDT Clinical Support [facility] [address] [place], [place] [phone] Dede Paredes RN documented as of this encounter Procedures Procedure Name Priority Date/Time Associated Diagnosis Comments ETHANOL Routine 09/29/2022 5:25 PM EDT Opioid type dependence, continuous (CMS/HCC) CBC WITH AUTO DIFFERENTIAL Routine 09/29/2022 5:25 PM EDT Opioid type dependence, continuous (CMS/HCC) VALPROIC ACID Routine 09/29/2022 5:25 PM EDT Opioid type dependence, continuous (CMS/HCC) COMPREHENSIVE METABOLIC PANEL Routine 09/29/2022 5:25 PM EDT Opioid type dependence, continuous (CMS/HCC) documented in this encounter Results * (ABNORMAL) Valproic Acid Total (09/29/2022 5:25 PM EDT) Valproate 116.6(HH) 50.0 - 100.0 mcg/mL [facility] Comment:Critical value for t est(s): VALP Results called to and readback by: NAYELY Person calling: DARIANERHelen Date: 09/29/22Time:1815 09/29/2022 5:25 PM EDT 09/29/2022 5:27 PM EDT [facility] External Provider LAB BLO OD ORDERABLES Final Result Performing Organization Address City/[facility]/ZIP Co de Phone Number [facility] [address] [place] [phone] * Ethanol (09/29/2022 5:25 PM EDT) ETHANOL (MG/DL) IN SER/PLAS <10 mg/dL [facility] 09/29/2022 5:25 PM EDT 09/29/2022 5:27 PM EDT [facility] External Provider LAB BLO OD ORDERABLES Final Result [facility] [address] [place] [address] [phone] * (ABNORMAL) Comprehensive Metabolic Panel (09/29/2022 5:25 PM EDT) Sodium 141 135 - 145 mmol/L [facility] Potassium 4.9 3.3 - 5.1 mmol/L [facility] Comment:Slight Hemolysis Chloride 104 96 - 108 mmol/L [facility] Carbon Dioxide 24 22 - 29 mmol/L [facility] Anion Gap 18 12 - 20 [facility] Urea Nitrogen (BUN) 19(H) 9 - 16 mg/dL [facility] Creatinine, Serum 0.91 0.5 - 1.4 mg/dL [facility] Creatinine Clr Calc Pharmacy 93.3 [facility] Comment:eGFR (calculated fro m the MDRD study equation) and eCrCl(calculated from the Cockcroft-Gault equation) are based ondifferent parameters and may not yield comparable results.If eCrCl result is absurd, please check patient'sheight/weight. Estimated Glomerular Filt Rate >60 [facility] Comment:NOTE: For -Am erican individuals, multiply the result by 1.210.Chronic Kidney Disease: Estimated GFR < 60 mL/min/1.04z8Smcrey Kidney Disease: Estimated GFR < 15 mL/min/1.73m2 Glucose 80 60 - 115 mg/dL [facility] Calcium 9.8 8.4 - 10.2 mg/dL [facility] Bilirubin, Total 0.3 0.0 - 1.0 mg/dL [facility] Aspartate Amino Transferase 25 5 - 37 U/L [facility] Comment:Slight Hemolysis Alanine Aminotransferase 21 0 - 40 U/L [facility] Total Protein 8.0 6.5 - 8.0 g/dL [facility] Albumin Level 4.4 3.5 - 5.0 g/dL [facility] Alkaline Phosphatase 58 39 - 117 U/L [facility] 09/29/2022 5:25 PM EDT 09/29/2022 5:27 PM EDT [facility] External Provider LAB BLO OD ORDERABLES Final Result [facility] [address] [place] [address] [phone] * (ABNORMAL) CBC auto differential (09/29/2022 5:25 PM EDT) White Blood Count 8.3 4.8 - 10.8 X10*3/uL [facility] Red Blood Count 4.15(L) 4.60 - 5.80 X10*6/uL [facility] Hemoglobin 12.0(L) 14.0 - 18.0 g/dl [facility] Hematocrit 38.5(L) 42.0 - 52.0 % [facility] Mean Corpuscular Volume 92.8 80.0 - 98.0 fL [facility] Mean Corpuscular Hemoglobin 28.9 27.0 - 33.0 pg [facility] Mean Corpuscular HGB Conc 31.2 31.0 - 36.0 g/dl [facility] Red Cell Distribution Width 13.7 11.0 - 16.0 % [facility] Platelet Count 251 160 - 400 X10*3/uL [facility] Mean Platelet Volume 11.5 9.4 - 12.4 fL [facility] Neutrophils Percent Auto 62.2 45 - 73 % [facility] Imm Gran Pct Auto 0.4 0.0 - 0.4 % [facility] Lymphocytes Percent Auto 25.8 20 - 40 % [facility] Monocytes Percent Auto 9.3 2 - 11 % [facility] Eosinophils Percent Auto 1.6 0 - 4 % [facility] Basophils Percent Auto 0.7 0 - 2 % [facility] NRBC Pct Auto 0.0 0.0 - 0.2 /100WBC [facility] Neutrophils Absolute Auto 5.2 2.0 - 8.3 x10*3/uL [facility] Imm Gran Abs Auto 0.03 0.00 - 0.03 X10*3/uL [facility] Lymphocytes Absolute Auto 2.1 1.2 - 4.9 X10*3/uL [facility] Monocytes Absolute Auto 0.8 0.1 - 1.2 X10*3/uL [facility] Eosinophils Absolute Auto 0.1 0.0 - 0.4 X10*3/uL [facility] Basophils Absolute Auto 0.1 0.0 - 0.2 X10*3/uL [facility] NRBC Abs Auto 0.000 0.0 - 0.012 X10*3/uL [facility] 09/29/2022 5:25 PM EDT 09/29/2022 5:27 PM EDT [facility] External Provider LAB BLO OD ORDERABLES Final Result [facility] [address] [place] [phone] documented in this encounter Visit Diagnoses Diagnosis Opioid type dependence, continuous (CMS/HCC)- Primary Opioid type dependence, continuous documented in this encounter Additional Health Concerns Assessment Noted Time PHQ-9 Depression Total Score: 0 08/22/19 23 2:15 PM EDT documented as of this encounter Care Teams Licensed Practical Nurse Clinic Nurse Relationship Specialty Start Date End Date Keren Randle MD [address] [place] [phone] PCP - General Family Medicine 01/01/14 documented as of this encounter
[2024-10-29 12:33] LABS: Valproate 55.1 mcg/mL (50.0-100.0)
== END 2024-10-29 10:28 | disposition home or self-care (01) ==
LOC: HO.LAB 10:27
PROVIDERS: PCP Family Medicine; Visit Provider Registered Nurse
DX: G40.909 Epilepsy, unspecified, not intractable, without status epilepticus (principal)
CPT/HCPCS: 36415; 80164

== ENCOUNTER 2025-01-20 10:45 | Outpatient (AMB) | payer OTHER, SELFPAY ==
--- NOTE | 2025-01-20 10:54 | A.OFFVIS_ITS ---
Intake Visit Reasons: 3 Months SZ Accompanied by: Mother Allergies No Known Allergies Allergy (Verified 01/20/25 11:07) Medication List - Last Reconciled 01/20/25 by Hui Sherman CNP divalproex ER (Depakote ER) 500 mg PO BID hydroxyzine pamoate 25 mg PO BID levetiracetam 500 mg orally 2 tabs in the morning and 3 tablets at bedtime; levothyroxine 100 mcg PO DAILY HPI Comments Details: He was here with his mother. He was using heroin again and was planning on start rehab program tomorrow. No seizures. His mother helped to manage his medications. She picked up Depakote refill about 2 weeks ago with instructions to take 1 tablet twice a day. He was previously taking Depakote 500mg 1 tablet in the morning and 2 tablets at bedtime. He was still taking levetiracetam 500mg 2 tablets in the morning and 3 tablets at bedtime. No medication side effects. Sleep was okay. Mild tremors in hands were unchanged. No functional impairment. His mother and aunt had tremors. He was in drug rehab program for about 50 days and was discharged home in 10/2024. 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 Last Sz was around March 2018 when his family heard a noise and found him on the ground shaking all over. It lasted for 30 seconds. In the past, he had been drinking alcohol and missing doses after drinking. Also, his father reported that every day he might leave at 3:57 PM and sometimes was not home until late morning. [facility] Medical History (Updated 01/20/25 @ 11:03 by Hui Sherman CNP) Familial tremor Phakomatosis, unspecified Asthma Thyroid disease Epilepsy Opiate abuse, continuous Family History (Updated 01/20/25 @ 11:04 by Hui Sherman CNP) Mother Tremor Maternal Aunt Tremor Social History Patient Tobacco Use Status: Current everyday Tobacco user Substance Use Type: Heroin Review of Systems Const Denies chills, Denies daytime sleepiness, Denies difficulty sleeping, Denies fatigue, Denies fever(s), Denies frequent falls, Denies headache(s), Denies increased appetite, Denies poor appetite, Denies snoring, Denies weakness, Denies weight gain and Denies weight loss Eyes Denies loss of vision ENT Denies vertigo, Denies dizziness, Denies headache(s) and Denies neck pain Card Denies chest pain at rest, Denies chest pain with activity, Denies syncope, Denies leg edema, Denies palpitations, Denies dyspnea and Denies dyspnea on exertion Resp Denies cough, Denies dyspnea, Denies dyspnea on exertion and Denies snoring GI Denies abdominal pain, Denies constipation, Denies heartburn, Denies diarrhea and Denies nausea Denies urinary frequency, Denies urinary incontinence and Denies urinary urgency Musc Denies abnormal gait, Denies back pain, Denies myalgias, Denies arthralgias, Denies neck pain, Denies numbness and Denies tingling Neuro Denies abnormal gait, Denies vertigo, Denies dizziness, Denies syncope, Denies frequent falls, Denies headache(s), Denies lack of coordination, Denies loss of vision, Denies memory loss, Denies numbness, Denies Other visual disturbances, Denies restless legs, Denies seizure-like activity, Denies tingling, Denies paresthesias, Reports tremor(s) and Denies weakness Psych Denies anxiety, Denies depression, Denies auditory hallucinations, Denies memory loss and Denies visual hallucinations Endo Denies fatigue and Denies palpitations Physical Exam Const Other: General Appearance:? normal, in no acute distress. Heart:? S1, S2 normal, no murmurs. Lungs:? clear anteriorly and posteriorly. Musculoskeletal:? normal. Extremities:? no edema. Psych:? alert, oriented, cognitive function intact, cooperative with exam. Neuro Other: Mental Status:?Normal attention, orientation, memory and affect.? Cranial Nerves:?Pupils are equal, round and reactive to light. External occular muscles are intact. Visual cuevas are full. Face is symmetrical. Facial sensations are normal. Tongue is midline. Palate elevates symmetrically. Shoulder shrugging is normal. Hearing to bedside conversation is normal. Sensory Exam:?....? Coordination:?No ataxia,?no titubation.? Gait Exam: Within normal limits. Cerebellar Signs:?Bfekin-by-wkms and udid-ms-vbcj is normal.? Extrapyramidal System:?No tremor, rigidity with normal facial expressions.? Pronator Drift:?Not present.? Involuntary Movements:?Fine tremors of the outstretched hands seen. Speech:?Normal.? Results Reviewed Results Reviewed: Laboratory Tests 10/29/24 10:51 Valproic Acid 55.1 Assessment & Plan Assessment & Plan (1) Epilepsy: Code(s): G40.909 - Epilepsy, unspecified, not intractable, without status epilepticus Category: Medical Qualifiers: Epilepsy type: unspecified Intractability: not intractable Status epilepticus: without status epilepticus Qualified Code(s): G40.909 - Epilepsy, unspecified, not intractable, without status epilepticus Plan: No seizures. Continue Depakote ER 500mg 1 tablet twice a day for now, will check depakote level. Last dose was this morning. Continue levetiracetam 500mg 2 tablets in the morning and 3 tablets at bedtime. (2) Familial tremor: Code(s): G25.0 - Essential tremor Category: Medical Plan: Tremor was mild and there was no functional impairment, no medication was needed at this time. Orders: Orders Valproate Today G40.909 - Epilepsy, unspecified, not intractable, without status epilepticus Coding Level of Care Code Est Pt Level 4 (48887) Diagnoses Nonintractable epilepsy without status epilepticus, unspecified epilepsy type G40.909 Epilepsy type: unspecified Intractability: not intractable Status epilepticus: without status epilepticus Familial tremor G25.0
--- OUTSIDE RECORDS SUMMARY | 2025-01-20 12:16 | XMS_ITS | Encounter Summary ---
Author Organization [employer] Address [address] [place] [address] Care Team Providers Care Coal Picker Name Role Phone Keren Randle MD Primary Care Provider [phone] Encounter Details Date Type Department Care Team (Late st Contact Info) Description 08/28/2022 Orders Only [facility] [address] [place] [address] [phone] Martínez Roy MD [address], [place] [phone] Opioid type dependence, continuous (CMS/HCC) (Primary Dx) [...] Care Team (Late st Contact Info) Description 02/12/2025 10:30 AM EDT Office Visit [facility] MEDICINE [address], [place] [phone] Keren Randle MD [address] [place] [phone] documented as of this encounter Procedures Procedure [...] Valproic Acid Total (09/29/2022 5:25 PM EDT) [facility] Valproate 116.6(HH) 50.0 - 100.0 mcg/mL [facility] Comment:Critical value for t est(s): VALP Results called to and readback by: NAYELY Person calling: JAY JAY Date: 09/29/22Time:1814 09/29/2022 5:25 PM EDT 09/29/2022 5:27 PM EDT [facility] External Provider LAB BLO OD ORDERABLES Final Result [facility] [address] [place] [address] [phone] * Ethanol (09/29/2022 5:25 PM EDT) Pathologist [facility] ETHANOL (MG/DL) IN SER/PLAS <10 mg/dL [facility] 09/29/2022 5:25 PM EDT 09/29/2022 5:27 PM EDT [facility] External Provider LAB BLO OD ORDERABLES Final Result [facility] [address], [place] [phone] * (ABNORMAL) Comprehensive Metabolic Panel (09/29/2022 5:25 PM EDT) Sodium 141 135 - 145 mmol/L [facility] Potassium 4.9 3.3 - 5.1 mmol/L [facility] Comment:Slight Hemolysis Chloride 104 96 - 108 mmol/L [facility] Carbon Dioxide 24 22 - 29 mmol/L [facility] Anion Gap 18 12 - 20 [facility] Urea Nitrogen (BUN) 19(H) 9 - 16 mg/dL [facility] Creatinine, Serum 0.91 0.5 - 1.4 mg/dL [facility] Creatinine Clr Calc Pharmacy 93.3 [facility] Comment:eGFR (calculated fro m the MDRD study equation) and eCrCl(calculated from the Cockcroft-Gault equation) are based ondifferent parameters and may not yield comparable results.If eCrCl result is absurd, please check patient'sheight/weight. Estimated Glomerular Filt Rate >60 [facility] Comment:NOTE: For -Am erican individuals, multiply the result by 1.210.Chronic Kidney Disease: Estimated GFR < 60 mL/min/[id number] Kidney Disease: Estimated GFR < 15 mL/min/1.73m2 Glucose 80 60 - 115 mg/dL [facility] Calcium 9.8 8.4 - 10.2 mg/dL [facility] Bilirubin, Total 0.3 0.0 - 1.0 mg/dL [facility] Aspartate Amino Transferase 25 5 - 37 U/L [facility] Comment:Slight Hemolysis Alanine Aminotransferase 21 0 - 40 U/L [facility] Total Protein 8.0 6.5 - 8.0 g/dL [facility] Albumin Level 4.4 3.5 - 5.0 g/dL [facility] Alkaline Phosphatase 58 39 - 117 U/L [facility] 09/29/2022 5:25 PM EDT 09/29/2022 5:27 PM EDT us [facility] External Provider LAB BLO OD ORDERABLES Final Result [facility] [address] [place] [address] [phone] * (ABNORMAL) CBC auto differential (09/29/2022 5:25 PM EDT) White Blood Count 8.3 4.8 - 10.8 X10*3/uL [facility] Red Blood Count 4.15(L) 4.60 - 5.80 X10*6/uL [facility] Hemoglobin 12.0(L) 14.0 - 18.0 g/dl [facility] Hematocrit 38.5(L) 42.0 - 52.0 % [facility] Mean Corpuscular Volume 92.8 80.0 - 98.0 fL [facility] Mean Corpuscular Hemoglobin 28.9 27.0 - 33.0 pg [facility] Mean Corpuscular HGB Conc 31.2 31.0 - 36.0 g/dl [facility] Red Cell Distribution Width 13.7 11.0 - 16.0 % [facility] Platelet Count 251 160 - 400 X10*3/uL [facility] Mean Platelet Volume 11.5 9.4 - 12.4 fL [facility] Neutrophils Percent Auto 62.2 45 - 73 % [facility] Imm Gran Pct Auto 0.4 0.0 - 0.4 % [facility] Lymphocytes Percent Auto 25.8 20 - 40 % [facility] Monocytes Percent Auto 9.3 2 - 11 % [facility] Eosinophils Percent Auto 1.6 0 - 4 % [facility] Basophils Percent Auto 0.7 0 - 2 % [facility] NRBC Pct Auto 0.0 0.0 - 0.2 /100WBC [facility] Neutrophils Absolute Auto 5.2 2.0 - 8.3 x10*3/uL [facility] Imm Gran Abs Auto 0.03 0.00 - 0.03 X10*3/uL [facility] Lymphocytes Absolute Auto 2.1 1.2 - 4.9 X10*3/uL [facility] Monocytes Absolute Auto 0.8 0.1 - 1.2 X10*3/uL [facility] Eosinophils Absolute Auto 0.1 0.0 - 0.4 X10*3/uL [facility] Basophils Absolute Auto 0.1 0.0 - 0.2 X10*3/uL [facility] NRBC Abs Auto 0.000 0.0 - 0.012 X10*3/uL [facility] 09/29/2022 5:25 PM EDT 09/29/2022 5:27 PM EDT us [facility] External Provider LAB BLO OD ORDERABLES Final Result [facility] [address] [place] [phone] documented in this encounter Visit Diagnoses Diagnosis Opioid type dependence, continuous (CMS/[facility])- Primary Opioid type dependence, continuous documented in this encounter Additional Health Concerns Assessment Noted Time PHQ-9 Depression Total Score: 0 08/22/19 23 2:15 PM EDT documented as of this encounter Care Teams Coal Picker Relationship Specialty Start Date End Date Keren Randle MD [address] [place] [phone] PCP - General Family Medicine 01/01/14 documented as of this encounter
--- OUTSIDE RECORDS SUMMARY | 2025-01-20 12:16 | XMS_ITS | Clinical Summary ---
Author Organization [facility] Address [address] [place] [address] Care Team Providers Care Senior Insight Manager Name Role Phone Unavailable Primary Care Provider Unavailabl e Source Comments PLEASE NOTE, if this patient is a minor, it may be UNLAWFUL to discuss sensitive information that is contained in these records (such as FAMILY PLANNING, MENTAL HEALTH or SUBSTANCE ABUSE) with the minor patient's parent or other person without the patient's specific authorization.[facility] Allergies No known active allergies Medications valproic acid, as sodium salt, (DEPAKENE ORAL) Take by mouth 2 (two) times daily Active ibuprofen 600 mg tabletIndication s:Retained dental root Take 1 Tablet by mouth 4 (four) times daily as needed for mild pain 20 Tablet 04/08/2024 Active Social History Tobacco Use Types Packs/Day Years Used Date Smoking Tobacco: Every Day Cigarettes Passive Smoke Exposure: Never Smokeless Tobacco: Never Tobacco Cessation:Ready to Q uit: Not Asked; Counseling Given: Not Answered Social Connections Answer Date Recorded Connectedness 0 02/15/2024 Financial Resource Strain Answer Date R ecorded Financial Resource Strain 0 2023 Stress Answer Date Recorded Stress 0 01/11/2024 Physical Activity Answer Date Recorded Physical Activity 0 01/11/2024 Food Insecurity Answer Date Recorded Food 0 02/28/2024 Transportation Needs Answer Date Record ed Transportation 0 01/11/2024 Housing Stability Answer Date Recorded Housing 0 01/11/2024 Safety and Environment Answer Date Sy rded Safety 0 01/11/2024 Utilities Answer Date Recorded Utilities 0 01/11/2024 Employment Answer Date Recorded Stress 0 02/15/2024 Sex and Gender Information Value Date Recorded Sex Assigned at Not on file Legal Sex Male 7:47 AM PDT Gender Identity Not on file Sexual Orientation Not on file Last Filed Vital Signs Vital Sign Reading Time Taken Comments Blood Pressure 103/65 06/19/2024 10:59 AM EST Pulse 51 06/19/2024 10:59 AM EST Temperature - - Respiratory Rate - - Oxygen Saturation - - Inhaled Oxygen Concentration - - Weight - - Height - - Body Mass Index - - Plan of Treatment Health Maintenance Due Date Last Done Comments Anxiety Screening 1991 Dental Perio Charting 1991 Tobacco Cessation Counseling (#1) 1991 Medicare Annual Wellness Visit 2009 Imm-Pneumococcal (2 of 2 - PCV) 10/16/2017 7, 03/18/2013 [id number] (1 - 2023- season) 2024 Alcohol and Drug Screen 06/04/2024 Depression Annual Screen 06/04/2024 Dental BW 01/30/2025 01/29/2024 Dental Examination 01/30/2025 01/29/2024 Imm-Influenza (#1) 2025 06/11/2017, 1 , 03/18/2013, Additional history exists Dental Prophy 02/20/2025 02/19/2024 Imm-DTaP/Tdap/Td (6 - Td or Tdap) 10/16/2026 10/16/2016, 07/21/2005, 02/26/1995, Additional history exists Hypertension Screening (#1) 06/19/2027 Dental FMX/Pano 04/10/2029 04/08/2024, 01/29/2024 Imm-Hepatitis B Completed 07/29/2013, 03/04, 01/06/1998, Additional history exists HIV Screening Completed 03/18/2024, 03/04, 08/31/2022, Additional history exists Hepatitis C Screening Completed 03/18/2024 Procedures Procedure Name Priority Date/Time Associated Diagnosis Comments PANORAMIC RADIOGRAPHIC IMAGE Routine 04/08/2024 10:00 AM EST Retained dental root Retained tooth root Caries PROPHYLAXIS - ADULT Routine 02/19/2024 9 :00 AM EDT Encounter for dental examination and cleaning without abnormal findings Full INTRAORAL - COMP SERIES OF RADIOGRAPHIC IMAGES Routine 01/29/2024 9:00 AM EDT Retained tooth root Caries Encounter for dental examination and cleaning with abnormal findings Full COMP ORAL EVALUATION - NEW/ESTABLISHED PATIENT Routine 01/29/2024 9:00 AM EDT Caries Encounter for dental examination and cleaning with abnormal findings from Last 3 Months or Most Recently Relevant to Health Maintenance Insurance [facility]
== END 2025-01-20 11:16 | disposition home or self-care (01) ==
LOC: HO.HSM 10:46
PROVIDERS: PCP Family Medicine; Referring Provider Family Medicine; Visit Provider Registered Nurse
DX: G40.909 Epilepsy, unspecified, not intractable, without status epilepticus (principal); G25.0 Essential tremor
CPT/HCPCS: 99214

== ENCOUNTER 2025-01-20 10:45 | Outpatient (REF) | payer OTHER, SELFPAY | END 2025-01-20 10:46 | disposition home or self-care (01) | LOC: HO.LAB 10:45 | PROVIDERS: PCP Family Medicine; Referring Provider Family Medicine; Visit Provider Registered Nurse | DX: G40.909 Epilepsy, unspecified, not intractable, without status epilepticus (principal); G25.0 Essential tremor; Z79.899 Other long term (current) drug therapy | CPT/HCPCS: 36415; 80164; 99212 ==